=== PATIENT | male | born 1980 | race Caucasian/White ===

== ENCOUNTER 2019-11-01 17:28 | Inpatient (IN) | payer OTHER | END 2019-11-08 10:39 | disposition home or self-care (01) | DRG 392 | LOC: ER 17:28 → MEDJ 11-02 07:31 | PROVIDERS: ADMIT Internal Medicine Cardiovascular Disease | PROC: BW21ZZZ Computerized Tomography (CT Scan) of Abdomen and Pelvis (ICD-10-PCS; principal; 2019-11-02) | PROC: BL43ZZZ Ultrasonography of Lower Extremity Tendons (ICD-10-PCS; 2019-11-06) | DX: K57.32 Diverticulitis of large intestine without perforation or abscess without bleeding (principal); I10 Essential (primary) hypertension; M10.9 Gout, unspecified ==

== ENCOUNTER 2020-02-19 05:55 | Day surgery (SDC) | payer OTHER ==
[~2020-02-19 05:55] MED LIST: ATACAND32 MG PO; BYSTOLIC10 MG PO
== END 2020-02-19 11:45 | disposition home or self-care (01) ==
LOC: AMB-ENDOS 05:55
PROVIDERS: ATTEND Surgery
DX: K62.89 Other specified diseases of anus and rectum (principal); K64.8 Other hemorrhoids; Z20.828 Contact with and (suspected) exposure to other viral communicable diseases